=== PATIENT | male | born 1950 | race Caucasian/White ===

== ENCOUNTER → 2020-01-16 | Outpatient (CLI) | payer MEDICARE, OTHER ==
[~2020-01-16] MED LIST: ASP81TEC PO; CALC-20 PO; CITA10TA70 PO; ESCT10T; FAMO20TA13 PO; FLT05NA16 NSEACH; HYDR-34 PO; LEVO125T PO; LIOT5TAB6 PO; LVT.15T PO; NEURONTIN; OLME20TA5; OLME20TA5 PO; OMEG1CAP51 PO; OMEP40CA36 PO; ROSU10TA12; SIMV10TA3 PO; SIMV20TA3 PO; SYNTHROID; VITAMIN B PO; [UNRECOGNIZED DRUG - OTHER]
--- NOTE | 2020-01-16 08:08 | Diagnostic Imaging Report ---
PROCEDURE: CT sinuses without contrast TECHNIQUE: Multiple contiguous axial images were obtained through the sinuses without the use of intravenous contrast. Coronal and sagittal reformations were then performed. Auto Exposure Controls were utilized during the CT exam to meet ALARA standards for radiation dose reduction. Date: January 16, 2020. Indication: 69-year-old male, history of chronic sinusitis. Stated history of sinus surgery twice. Comparison: CT head without contrast June 15, 2015. Findings: The patient is status post functional endoscopic sinus surgery bilaterally. There is partial opacification of the right sphenoid sinus. The left sphenoid sinus is well aerated. There is a widened appearance of the left sphenoethmoidal recess which may be postoperative related. There is mucosal thickening along the right sphenoethmoidal recess. The right sphenoethmoidal recess is not completely opacified. The maxillary sinuses are well aerated bilaterally. There are procedural-related changes of the ethmoidal air cells. The frontal sinuses are well-aerated bilaterally. There is no aggressive bone destruction. There is mild wall thickening of the lowry of the right maxillary sinus. The bony nasal septum is not substantially off midline. The mastoid air cells and middle ears are well-aerated. Impression: 1. Findings consistent with chronic sinusitis involving the right sphenoid sinus with mild thickening of the bony lowry of the right sphenoid sinus. 2. Nonspecific partial opacification in the right sphenoid sinus without an air-fluid level or bubbly areas of lucency to specifically suggest acute sinusitis. Correlation clinically may be helpful. 3. The patient is status post functional endoscopic sinus surgery bilaterally. There is mucosal thickening along the right sphenoethmoidal recess which is not completely opacified. Dictated by: Dictated on workstation # [id number]
== END ==
LOC: RAD 07:21
PROVIDERS: ATTEND Otolaryngology Otolaryngology/Facial Plastic Surgery
DX: J32.9 Chronic sinusitis, unspecified (principal)
CPT/HCPCS: 70486

== ENCOUNTER 2020-06-08 07:45 | Outpatient (RCR) | payer MEDICARE, OTHER ==
[2020-05-26 02:27] LABS: GROWTH HORMONE (HGH) HUMAN PT <0.1 ng/dL (0.0-3.0)
== END 2020-08-23 | disposition home or self-care (01) ==
LOC: LAB 07:45 → EDSTATUS 07:49 → LAB 08:00
PROVIDERS: ATTEND Internal Medicine Endocrinology, Diabetes & Metabolism
DX: E23.0 Hypopituitarism (principal); E03.8 Other specified hypothyroidism
CPT/HCPCS: 36415; 82024; 82533; 82627; 83001; 83002; 83003; 84146; 84270; 84305; 84402; 84403; 84439; 84481

== ENCOUNTER → 2020-09-30 | Outpatient (CLI) | payer MEDICARE, OTHER | LOC: LAB 07:34 | PROVIDERS: ATTEND Internal Medicine Endocrinology, Diabetes & Metabolism | DX: E23.0 Hypopituitarism (principal); E03.8 Other specified hypothyroidism | CPT/HCPCS: 36415; 84403; 84439 ==